=== PATIENT | female | born 1950 | race African-American/Black ===

== ENCOUNTER 2017-03-05 11:04 | Outpatient (CLI) | payer OTHER ==
[2017-03-05 12:00] LABS: #Basophils 0.1 thou/uL (0.0-0.2); #Eosinphils 0.4 thou/uL (0.0-0.7); #Lymphocytes 1.4 thou/uL (1.20-3.40); #Monocytes 0.5 thou/uL (0.11-0.59); #Neutrophils 3.6 thou/uL (1.40-6.50); %Basophils 1.3 % (0.0-1.0); %Eosinophils 6.2 % (0.0-10.0); %Lymphocytes 23.8 % (21.0-51.0); %Neutrophils 60.6 % (42.0-75.0); Anion Gap 15 mmol/L (10-20); BUN (Urea Nitrogen) 11 mg/dL (9.8-20.1); Calc. Creatinine Clearance 0 mL/min (70-130); Calcium 9.8 mg/dL (7.8-10.44); Carbon Dioxide 23 mmol/L (23-31); Cardiac Risk 4.4 (Less than 4.5); Chloride 105 mmol/L (98-107); Cholesterol 175 mg/dl (< 200 Desired); Estimated GFR-MDRD 87; Glucose 101 mg/dL (80-115); HDL Cholesterol 40 mg/dL (>60 Neg Risk); LDL Cholesterol, Calculated 119 mg/dL; Mean Corpuscular HGB CONC 32.2 g/dL (32.0-36.0); Mean Corpuscular Hemoglobin 27.7 pg (27.0-31.0); Mean Corpuscular Volume 86.1 fl (81.0-99.0); Mean Platelet Volume 8.8 fL (7.4-10.4); Platelet Count 281 thou/uL (130-400); Potassium 4.3 mmol/L (3.5-5.1); RBC Distribution Width 11.6 % (11.5-14.5); Red Blood Cell (RBC) Count 5.06 mill/uL (4.20-5.40); Sodium 139 mmol/L (136-145); Triglycerides 81 mg/dL (Less than 150); White Blood Cell (WBC) Count 5.9 thou/uL (4.8-10.8)
[2017-03-05 12:40] LABS: Bilirubin Negative (Negative); Blood, Urine Negative (Negative); Clarity Clear (Clear); Glucose, Urine (Dipstick) Negative (Negative); Leukocyte Negative (Negative); Nitrite Negative (Negative); Protein, Urine (Dipstick) Negative (Neg-Trace); Urobilinogen 0.2 mg/dL (0.2-1.0)
[2017-03-05 12:45] LABS: Bacteria/HPF Rare-Few HPF (None Seen); Squamous Epithelial 0-3 HPF (0-3); WBC/HPF 0-3 HPF (0-3)
[2017-03-05 14:32] LABS: RBC/HPF 0-3 HPF (0-3)
== END 2017-03-05 11:05 | disposition home or self-care (01) ==
LOC: MADLABBHPM 11:04
PROVIDERS: ATTEND Family Medicine
DX: I10 Essential (primary) hypertension (principal)
CPT/HCPCS: 36415; 80048; 80061; 81001; 85025

== ENCOUNTER 2017-09-27 11:24 | Outpatient (CLI) | payer MEDICARE ==
--- NOTE | 2017-09-27 13:51 | RAD ---
THREE VIEWS OF THE LUMBAR SPINE: INDICATIONS: Acute myofascial lumbar spinal strain. FINDINGS: There is mild multilevel disk degenerative disease. There is mild facet osteoarthritic change. Ther e is mild degenerative change of the SI joints. There are scattered phleboliths in the lower pelvis. The lung bases are clear. The bowel gas pattern is unobstructed. IMPRESSION: Mild spondylosis of the lumbar spine. POS: [facility]
== END 2017-09-27 11:25 | disposition home or self-care (01) ==
LOC: MADRAD 11:24
PROVIDERS: ATTEND Family Medicine
DX: S39.012A Strain of muscle, fascia and tendon of lower back, initial encounter (principal); M47.816 Spondylosis without myelopathy or radiculopathy, lumbar region
CPT/HCPCS: 72100

== ENCOUNTER 2017-11-15 11:58 | Outpatient (CLI) | payer MEDICARE ==
--- NOTE | 2017-11-15 14:09 | RAD ---
PA AND LATERAL CHEST: Date: 11/15/17 HISTORY: Bronchitis. COMPARISON: None available. FINDINGS: Cardiac silhouette and pulmonary vasculature are within normal limits. The lungs are clear. Osseous s tructures are intact. Vascular calcifications seen in the aortic arch. IMPRESSION: No acute cardiopulmonary process. POS: [facility]
== END 2017-11-15 11:59 | disposition home or self-care (01) ==
LOC: MADRAD 11:58
DX: J40 Bronchitis, not specified as acute or chronic (principal)
CPT/HCPCS: 71046

== ENCOUNTER 2018-04-17 09:57 | Outpatient (CLI) | payer MEDICARE ==
[2018-04-17 10:18] LABS: #Basophils 0.1 thou/uL (0.0-0.2); #Eosinphils 0.5 thou/uL (0.0-0.7); #Lymphocytes 1.3 thou/uL (1.20-3.40); #Monocytes 0.4 thou/uL (0.11-0.59); #Neutrophils 3.3 thou/uL (1.40-6.50); %Basophils 1.3 % (0.0-1.0); %Eosinophils 8.3 % (0.0-10.0); %Lymphocytes 22.5 % (21.0-51.0); %Monocytes 7.9 % (0.0-10.0); Hemoglobin 12.8 g/dL (12.0-16.0); Mean Corpuscular HGB CONC 32.8 g/dL (32.0-36.0); Mean Corpuscular Hemoglobin 27.3 pg (27.0-31.0); Mean Corpuscular Volume 83.3 fL (78.0-98.0); Mean Platelet Volume 7.4 fL (7.4-10.4); Platelet Count 238 thou/uL (130-400); RBC Distribution Width 11.5 % (11.5-14.5); White Blood Cell (WBC) Count 5.5 thou/uL (4.8-10.8)
[2018-04-17 10:50] LABS: ALT (SGPT) 12 U/L (8-55); AST (SGOT) 14 U/L (5-34); Albumin 4.3 g/dL (3.4-4.8); Alkaline Phosphatase 97 U/L (40-150); Anion Gap 14 mmol/L (10-20); BUN (Urea Nitrogen) 9 mg/dL (9.8-20.1); Calc. Creatinine Clearance 0 mL/min (70-130); Calcium 9.5 mg/dL (7.8-10.44); Carbon Dioxide 26 mmol/L (23-31); Cardiac Risk 3.5 (Less than 4.5); Chloride 108 mmol/L (98-107); Cholesterol 176 mg/dl (< 200 Desired); Estimated GFR-MDRD Greater than 90; Globulin 2.8 g/dL (2.4-3.5); Glucose 109 mg/dL (80-115); HDL Cholesterol 50 mg/dL (>60 Neg Risk); LDL Cholesterol, Calculated 106 mg/dL; Potassium 3.8 mmol/L (3.5-5.1); Protein, Total 7.1 g/dL (6.0-8.3); Sodium 144 mmol/L (136-145); Triglycerides 100 mg/dL (Less than 150)
== END 2018-04-17 09:58 | disposition home or self-care (01) ==
LOC: MADLABBHPM 09:57
PROVIDERS: ATTEND Family Medicine
DX: E78.5 Hyperlipidemia, unspecified (principal); I10 Essential (primary) hypertension
CPT/HCPCS: 36415; 80053; 80061; 85025

== ENCOUNTER 2018-11-18 05:50 | Emergency (ER) | payer MEDICARE ==
[2018-11-18] MEDS ORDERED: Dexamethasone 10 MG/ML VIAL ONE (06:23)
[2018-11-18] MEDS ORDERED: diphenhydrAMINE 50 MG/ML VIAL ONE (06:23)
[2018-11-18] MEDS ORDERED: Famotidine In NaCl 20 mg/50 ml Premix Bag ONE (06:23)
== END 2018-11-18 09:10 | disposition home or self-care (01) ==
LOC: MADERS 05:50
DX: T78.3XXA Angioneurotic edema, initial encounter (principal); I10 Essential (primary) hypertension; Z79.82 Long term (current) use of aspirin; Z79.899 Other long term (current) drug therapy
CPT/HCPCS: 96365; 96375; J1100; J1200

== ENCOUNTER 2020-04-15 12:21 | Outpatient (CLI) | payer MEDICARE ==
[2020-04-15 12:55] LABS: Bilirubin Negative (Negative); Blood, Urine Trace (Negative); Clarity Clear (Clear); Glucose, Urine (Dipstick) Negative (Negative); Ketone, Urine Negative (Negative); Leukocyte Trace (Negative); Nitrite Negative (Negative); Protein, Urine (Dipstick) Trace mg/dL (Neg-Trace); Specific Gravity, Urine 1.025 (1.005-1.030); Urobilinogen 0.2 mg/dL (Less than 2); pH, Urine 5.5 (5.0-9.0)
--- NOTE | 2020-04-15 13:06 | RAD ---
RIGHT SHOULDER 3 VIEWS: Date: 04/15/2020 HISTORY: Right shoulder pain. FINDINGS/IMPRESSION: Degenerative changes are present in the acromioclavicular joint. No fracture, dislocation, or bony de struction identified. POS: [facility]
[2020-04-15 13:15] LABS: ALT (SGPT) 20 U/L (8-55); AST (SGOT) 18 U/L (5-34); Albumin 4.8 g/dL (3.4-4.8); Alkaline Phosphatase 112 U/L (40-110); Anion Gap 17 mmol/L (10-20); BUN (Urea Nitrogen) 10 mg/dL (9.8-20.1); Bilirubin, Total 1.4 mg/dL (0.2-1.2); Calc. Creatinine Clearance 0 mL/min (70-130); Carbon Dioxide 29 mmol/L (23-31); Cardiac Risk 4.1 (Less than 4.5); Chloride 101 mmol/L (98-107); Cholesterol 179 mg/dl (< 200 Desired); Estimated GFR-MDRD 83; Globulin 2.8 g/dL (2.4-3.5); Glucose 123 mg/dL (80-115); HDL Cholesterol 44 mg/dL (>60 Neg Risk); LDL Cholesterol, Calculated 113 mg/dL; Potassium 3.8 mmol/L (3.5-5.1); Protein, Total 7.6 g/dL (6.0-8.3); Sodium 143 mmol/L (136-145); Triglycerides 109 mg/dL (Less than 150)
[2020-04-15 13:18] LABS: Bacteria/HPF Rare-Few HPF (None Seen); RBC/HPF 0-3 HPF (0-3); Squamous Epithelial 0-3 HPF (0-3); WBC/HPF 0-3 HPF (0-3)
[2020-04-15 17:14] LABS: Hemoglobin A1c 6.2 % (4.0-6.0)
== END 2020-04-15 12:22 | disposition home or self-care (01) ==
LOC: MADRAD 12:21
PROVIDERS: ATTEND Family Medicine
DX: M25.511 Pain in right shoulder (principal); R73.03 Prediabetes; E78.5 Hyperlipidemia, unspecified; I10 Essential (primary) hypertension; M19.011 Primary osteoarthritis, right shoulder
CPT/HCPCS: 36415; 80053; 80061; 81001; 83036